=== PATIENT | male | born 1975 | race Hispanic/Latino ===

== ENCOUNTER 2016-11-01 22:37 | Emergency (ER) | payer OTHER ==
[2016-11-01 22:51] VITALS: BP 113/74; PULSE 52; RESP 16; TEMP 98; O2SAT 98; BMI 35.2
--- NOTE | 2016-11-04 23:48 | ED PDOC ---
Arrival/HPI - General Chief Complaint: Abdominal Pain Time Seen by Provider: 11/01/16 23:13 Historian: Patient - History of Present Illness Narrative History of Present Illness (Text): 11/01/16 23:46 Patient presents to the emergency room for evaluation of a mass in the epigastric area which he felt this afternoon after eating lunch and experiencing mild discomfort to the epigastric area, states he started rubbing his stomach and felt a mass, states that he called his doctor regarding his symptoms and he was instructed to come to the emergency room to be evaluated for possible hernia. 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 He currently denies any abdominal pain, nausea, vomiting, fever, diarrhea at this time. Otherwise, (-) urinary symptoms, (-) melena, (-) hematochezia, (-) other complaints. Has no history of prior abdominal surgery. PMD Jluis Past Medical History - Provider Review Nursing Documentation Reviewed: Yes - Psychiatric Hx Substance Use: No - Surgical History Hx Orthopedic Surgery: Yes (left shoulder) Other/Comment: endoscopy x2 Family/Social History - Physician Review Nursing Documentation Reviewed: Yes Family/Social History: No Known Family HX Smoking Status: Never Smoked Hx Alcohol Use: Yes Frequency of alcohol use: Socially Hx Substance Use: No Allergies/Home Meds Allergies/Adverse Reactions: Allergies ORANGE Allergy (Verified 11/01/16 22:49) RASH Home Medications: Home Meds Medication Instructions Recorded Confirmed Pantoprazole [Protonix] 40 mg PO DAILY 11/01/16 11/01/16 Review of Systems - Review of Systems Constitutional: Normal. absent: Fatigue, Weight Change, Fevers Respiratory: Normal. absent: SOB, Cough, Sputum Cardiovascular: Normal. absent: Chest Pain, Palpitations, Edema Gastrointestinal: Normal, Abdominal Pain (prior abd pain). absent: Stool Changes, Vomiting, Appetite Changes Genitourinary Male: Normal Musculoskeletal: Normal. absent: Arthralgias, Back Pain, Neck Pain Skin: Normal. absent: Rash, Pruritis, Skin Lesions Neurological: Normal. absent: Headache, Dizziness, Focal Weakness Physical Exam - Physical Exam Narrative Physical Exam (Text): 11/04/16 23:50 GENERAL APPEARANCE: Patient is awake, alert, oriented x 3, in no acute distress. Patient laying in bed comfortably. SKIN: Warm, dry; (-) cyanosis. EYES: (-) conjunctival pallor, (-) scleral icterus. ENMT: Mucous membranes moist. NECK: (-) tenderness, (-) stiffness, (-) lymphadenopathy. CHEST AND RESPIRATORY: (-) rales, (-) rhonchi, (-) wheezes; breath sounds equal bilaterally. HEART AND CARDIOVASCULAR: (-) irregularity; (-) murmur, (-) gallop. ABDOMEN AND GI: (-) distention. Bowel sounds active; (+) reducible ventral hernia in the epigastric area, (-) tenderness, (-) guarding, (-) rebound, (-) palpable masses, (-) CVA tenderness. EXTREMITIES: (-) deformity, (-) edema, (+) distal pulses. NEURO AND PSYCH: Mental status as above; (-) focal findings. Vital Signs Temp Pulse Resp BP Pulse Ox 11/02/16 00:31 16 98 11/01/16 22:50 98 F 52 L 16 113/74 98 Medical Decision Making ED Course and Treatment: 11/04/16 23:51 41-year-old male presents to the emergency room for evaluation of a ventral hernia that is reducible on physical exam. Based on history and exam, plan will be for outpatient follow-up with referral to on-call surgeon. Patient advised that because the hernia is reducible and there is no concern for strangulation or incarceration, there will be no further intervention necessary at this time in the emergency room to address his current condition. Patient continues to deny any abdominal pain, nausea and vomiting at this time. Patient is laying in bed comfortably in no acute distress. Repeat abdominal exam shows abdomen is soft with no tenderness, no guarding, no palpable mass after hernia was reduced successfully by PA at the bedside. Patient provided referral with on-call surgeon and advised to call within the next 2 days for outpatient follow-up and to schedule outpatient surgical repair of the hernia. Patient states he fully agrees with and understands discharge instructions. States that he agrees with the plan and disposition. Verbalized and repeated discharge instructions and plan. I have given the patient opportunity to ask any additional questions. Follow up with primary care physician and surgical referral provided in 1-2 days without fail. Return to the emergency room at any time for any new or worsening symptoms. - PA / AUTHORIZATION REP / Resident Statement / has reviewed & agrees with the documentation as recorded. Disposition/Present on Arrival - Present on Arrival Any Indicators Present on Arrival: No History of DVT/PE: No History of Uncontrolled Diabetes: No Urinary Catheter: No History of Decub. Ulcer: No History Surgical Site Infection Following: None - Disposition Have Diagnosis and Disposition been Completed?: Yes Diagnosis: Abdominal hernia Disposition: HOME/ ROUTINE Disposition Time: 00:00 Patient Plan: Discharge Condition: GOOD Discharge Instructions (ExitCare): Ventral Hernia (ED) Print Language: BAHRAINI Additional Instructions: Thank you for letting us take care of you today. You were treated for ventral hernia. The emergency medical care you received today was directed at your acute symptoms. Return to the Emergency Department if your symptoms worsen, do not improve, or if you have any other problems. Please contact your doctor in 2 days for re-evaluation and follow up / or call one of the physicians/clinics you have been referred to that are listed on the Patient Visit Information form that is included in your discharge packet. Bring any paperwork you were given at discharge with you along with any medications you are taking to your follow up visit. Our treatment cannot replace ongoing medical care by a primary care provider (PCP) outside of the emergency department. Thank you for allowing the [facility] team to be part of your care today. Referrals: Giuliano Bowen MD [Medical Doctor] - Follow up with primary Forms: WORK NOTE
== END 2016-11-02 00:32 | disposition home or self-care (01) ==
LOC: ED 22:37
DX: K46.9 Unspecified abdominal hernia without obstruction or gangrene (principal)